=== PATIENT | female | born 1940 | race Two or more races ===

== ENCOUNTER 2024-06-03 19:32 | Emergency (ER) | payer OTHER ==
[~2024-06-03] VITALS: Ht 149.9 cm; Wt 36.3 kg
[2024-06-03] MEDS ORDERED: PEPCID20 MG PO (19:56)
[2024-06-03] MEDS ORDERED: ATACAND16 MG PO (19:56)
[2024-06-03] MEDS ORDERED: PANTOPRAZOLE SO40 M2 PO (19:57)
[2024-06-03] MEDS ORDERED: MONTELUKAST SODI4 M1 PO (19:57)
[2024-06-03] MEDS ORDERED: AZOR 10-40 MG1 EACH PO (19:57)
[2024-06-03] MEDS ORDERED: 0.9 % SODIUM CHLORIDE 1,000 ML IV SCH (20:30)
[2024-06-03 20:48] LABS: HEMATOCRIT 38.5 % (36.0-45.00); HEMOGLOBIN 13.5 g/dL (12.0-15.00); MEAN CELL VOLUME 96.1 fL (80.00-100.00); MEAN CORPUSCULAR HEMOGLOBIN 33.7 pg (27.00-32.0); MEAN CORPUSCULAR HGB CONC 35.1 g/dl (32.0-36.0); PLATELET COUNT 220 K/uL (150-450); RED CELL DISTRIBUTION WIDTH 14.2 % (11.5-14.5)
[2024-06-03 21:38] LABS: PH,URINE 5.5 (5.0-8.0); URINE APPEARANCE Cloudy; URINE BILIRRUBIN Negative (NEGATIVE); URINE BLOOD Large; URINE COLOR Yellow; URINE GLUCOSE Negative (NEGATIVE); URINE KETONE Negative (NEGATIVE); URINE LEUKOCYTE Negative; URINE NITRATE Negative; URINE PROTEIN 30 (NEGATIVE); URINE UROBILINOGEN 0.2 E.U./dl
[2024-06-03 21:42] LABS: URINE EPITHELIAL CELLS 1.4 uL (0.0-38.8); URINE RBC 139.6 uL (0.0-20.8); URINE WBC 5.2 uL (0.0-23.2)
[2024-06-03 21:42] LABS: CALCIUM 10.1 mg/dL (8.5-10.1); CREATININE SERUM 0.88 mg/dL (0.55-1.02); GFR 61.22; POTASSIUM 4.39 mEq/L (3.5-5.1)
[2024-06-03 21:53] LABS: URINE BACTERIA 3.6 uL (0.0-1933); URINE CAST 0.14 uL (0.0-1.40)
== END 2024-06-04 00:29 | disposition home or self-care (01) ==
LOC: ER 19:34
PROVIDERS: Emergency Medicine
DX: K52.89 Other specified noninfective gastroenteritis and colitis (principal); I10 Essential (primary) hypertension; Z87.09 Personal history of other diseases of the respiratory system
CPT/HCPCS: 36415; 96365; 99282; J3490